=== PATIENT | male | born 1990 | race Two or more races ===

== ENCOUNTER 2017-12-17 10:07 | Emergency (ER) | payer OTHER ==
[~2017-12-17] VITALS: Ht 175.3 cm; Wt 85.3 kg
[2017-12-17 10:26] VITALS: BP 132/80
[2017-12-17] MEDS ORDERED: METHOCARBAMOL 500 MG TAB PO ONE (11:15)
== END 2017-12-17 11:55 | disposition home or self-care (01) ==
LOC: ER 10:16
DX: M54.6 Pain in thoracic spine (principal)
CPT/HCPCS: 72070